=== PATIENT | male | born 1985 | race Caucasian/White ===

== ENCOUNTER 2020-04-16 12:36 | Inpatient (IN) | payer BC ==
--- NOTE | 2020-04-16 12:45 | BHS.RME ---
Substance Use & Tx History - Substance Use History Heroin Substance amount: 5 bundles Frequency of use: Daily Substance route: Inhalation (ex: sniffing or snorting) Date of Last Use: 04/15/20 (started age 11, last used 10:30PM 40 bags) Nicotine Substance amount: 1 pack Frequency of use: Daily Substance route: Smoking Date of Last Use: 04/16/20 (started age 26) Marijuana/Hashish Substance amount: 1 joint Frequency of use: Once a month Substance route: Smoking Date of Last Use: 04/15/20 (started age 26) Physical/Psych/Mental Status - Behavior General Behavior: Increased activity (restlessness, agitation) Eye Contact: Normal - Cooperativeness Cooperativeness: Cooperative - Thinking Thought Processes: Tight, Logical, Goal Directed - Physical Health Problems Is patient presently having any pain?: No Does patient presently have any injuries (include location): No Does patient currently have a fever: No Is patient : No COWS - Scale Resting Pulse: 1= [place] 81-100 Sweatin= Chills/Flushing Restless Observation: 1= Difficult to Sit Still Pupil Size: 2= Moderately Dilated Bone or Joint Aches: 1= Mild Discomfort Runny Nose/ Eye Tearin= None GI Upset > 30mins: 0= None Tremor Observation: 0= None Yawning Observation: 0= None Anxiety or Irritability: 0= None Goose Flesh Skin: 3=Piloerection COWS Score: 9
[2020-04-16 13:30] VITALS: BMI 22.7
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
[2020-04-16] MEDS ORDERED: METHADONE HCL 10 MG TABLET (FOR DETOX USE ONLY) PO ONE (14:31)
[2020-04-16] MEDS ORDERED: MAG HYDROX/AL HYDROX/SIMETH 30 ML UNIT-DOSE CUP PO PRN (14:31)
[2020-04-16] MEDS ORDERED: BISMUTH SUBSALICYLATE 262 MG/15 ML BTL PO PRN (14:31)
[2020-04-16] MEDS ORDERED: MAGNESIUM CITRATE 300 ML BOTTLE PO PRN (14:31)
[2020-04-16] MEDS ORDERED: ACETAMINOPHEN 325 MG TABLET (FP) PO PRN ×2 (14:31)
[2020-04-16] MEDS ORDERED: ONDANSETRON *ODT* 4 MG TABLET SL PRN (14:31)
[2020-04-16] MEDS ORDERED: METHOCARBAMOL 500 MG TABLET PO PRN (14:31)
[2020-04-16] MEDS ORDERED: IBUPROFEN 400 MG TABLET (FP) PO PRN (14:31)
[2020-04-16] MEDS ORDERED: cloNIDine HCL 0.1 MG TABLET PO PRN (14:31)
[2020-04-16] MEDS ORDERED: MAGNESIUM HYDROX 2400MG/30ML ORAL SUSPENSION 30 ML CUP PO PRN (14:31)
[2020-04-16] MEDS ORDERED: MENTHOL/PHENOL 1 EACH UD MM PRN (14:31)
[2020-04-16] MEDS: NICOTINE 14 MG/24 HOURS TOPICAL PATCH TD SCH (15:43)
[2020-04-16 18:22] LABS: HEMOGLOBIN 11.7 GM/dL (11.7-16.9); MCH 28.5 pg (25.7-33.7); MCHC 33.3 g/dl (32.0-35.9); MEAN CELL VOLUME 85.7 fl (80-96); PLATELET COUNT 169 K/MM3 (134-434); RBC 4.08 M/mm3 (4.00-5.60); RDW 13.3 % (11.9-15.9); WHITE BLOOD COUNT 6.5 K/mm3 (4.0-10.0)
[2020-04-16 18:32] LABS: ALBUMIN 3.6 g/dl (3.4-5.0); BILIRUBIN,TOTAL 0.6 mg/dL (0.2-1); BLOOD UREA NITROGEN 16.9 mg/dL (7-18); CALCIUM 8.6 mg/dL (8.5-10.1); CREATININE 1.2 mg/dL (0.55-1.3); POTASSIUM 3.5 mmol/L (3.5-5.1); TOT PROT 6.7 g/dl (6.4-8.2)
[2020-04-16] MEDS: hydrOXYzine PAMOATE 25 MG CAPSULE (FP) PO SCH ×2 (18:50→23:16)
[2020-04-16] MEDS: MELATONIN 5 MG TABLETS PO SCH (23:16)
[2020-04-16] MEDS: THIAMINE HCL 100 MG TABLET (FP) PO SCH (23:16)
[2020-04-17] MEDS: hydrOXYzine PAMOATE 25 MG CAPSULE (FP) PO SCH ×5 (06:18→22:21)
[2020-04-17] MEDS ORDERED: METHADONE HCL 10 MG TABLET (FOR DETOX USE ONLY) ONE (08:48)
[2020-04-17] MEDS ORDERED: METHADONE HCL 5 MG TABLET (FOR DETOX USE ONLY) ONE (08:48)
[2020-04-17] MEDS ORDERED: METHADONE (DETOX) 20 MG, METHADONE (DETOX) 5 MG PO ONE (10:00)
--- NOTE | 2020-04-17 10:36 | PN ---
S COWS - Scale Resting Pulse: 1= [place] 81-100 Sweatin= No chills or Flushing Restless Observation: 0= Sits Still Pupil Size: 1= Pupils >than Normal Bone or Joint Aches: 2= Severe Diffuse Aches Runny Nose/ Eye Tearin= Runny Nose/Eyes GI Upset > 30mins: 2= Nausea/Diarrhea Tremor Observation of Outstretched Hands: 2= Slight Tremor Visible Yawning Observation: 1= 1-2x During Session Anxiety or Irritability: 2=Irritable/Anxious Goose Flesh Skin: 0=Smooth Skin COWS Score: 13 S Progress Note (SOAP) Subjective: alert,irritable,anxious,interrupted sleep,tremor,pain in the body and back,nausea Objective: 04/17/20 14:27 Vital Signs Temperature 97.8 F 04/17/20 12:54 Pulse Rate 83 04/17/20 12:54 Respiratory Rate 18 04/17/20 12:54 Blood Pressure 115/75 04/17/20 12:54 O2 Sat by Pulse Oximetry (%) 96 04/17/20 12:54 Laboratory Results - last 24 hr 04/16/20 04/16/20 04/16/20 13:40 13:40 13:40 WBC 6.5 RBC 4.08 Hgb 11.7 Hct 35.0 L MCV 85.7 MCH 28.5 MCHC 33.3 RDW 13.3 Plt Count 169 MPV 10.0 Sodium 138 Potassium 3.5 Chloride 104 Carbon Dioxide 29 Anion Gap 5 L BUN 16.9 Creatinine 1.2 Est GFR (CKD-EPI)AfAm 91.53 Est GFR (CKD-EPI)NonAf 78.97 Random Glucose 117 H Calcium 8.6 Total Bilirubin 0.6 AST 18 ALT 23 Alkaline Phosphatase 64 Total Protein 6.7 Albumin 3.6 Syphilis Serology HIV Ag/Ab Combo Qual Negative 04/16/20 13:40 WBC RBC Hgb Hct MCV MCH MCHC RDW Plt Count MPV Sodium Potassium Chloride Carbon Dioxide Anion Gap BUN Creatinine Est GFR (CKD-EPI)AfAm Est GFR (CKD-EPI)NonAf Random Glucose Calcium Total Bilirubin AST ALT Alkaline Phosphatase Total Protein Albumin Syphilis Serology Non-reactive HIV Ag/Ab Combo Qual 04/17/20 14:27 Laboratory Last Values WBC 6.5 K/mm3 (4.0-10.0) 04/16/20 13:40 RBC 4.08 M/mm3 (4.00-5.60) 04/16/20 13:40 Hgb 11.7 GM/dL (11.7-16.9) 04/16/20 13:40 Hct 35.0 % (35.4-49) L 04/16/20 13:40 MCV 85.7 fl (80-96) 04/16/20 13:40 MCH 28.5 pg (25.7-33.7) 04/16/20 13:40 MCHC 33.3 g/dl (32.0-35.9) 04/16/20 13:40 RDW 13.3 % (11.9-15.9) 04/16/20 13:40 Plt Count 169 K/MM3 (134-434) 04/16/20 13:40 MPV 10.0 fl (7.5-11.1) 04/16/20 13:40 Sodium 138 mmol/L (136-145) 04/16/20 13:40 Potassium 3.5 mmol/L (3.5-5.1) 04/16/20 13:40 Chloride 104 mmol/L (98-107) 04/16/20 13:40 Carbon Dioxide 29 mmol/L (21-32) 04/16/20 13:40 Anion Gap 5 MMOL/L (8-16) L 04/16/20 13:40 BUN 16.9 mg/dL (7-18) 04/16/20 13:40 Creatinine 1.2 mg/dL (0.55-1.3) 04/16/20 13:40 Est GFR (CKD-EPI)AfAm 91.53 04/16/20 13:40 Est GFR (CKD-EPI)NonAf 78.97 04/16/20 13:40 Random Glucose 117 mg/dL (74-106) H 04/16/20 13:40 Calcium 8.6 mg/dL (8.5-10.1) 04/16/20 13:40 Total Bilirubin 0.6 mg/dL (0.2-1) 04/16/20 13:40 AST 18 U/L (15-37) 04/16/20 13:40 ALT 23 U/L (13-61) 04/16/20 13:40 Alkaline Phosphatase 64 U/L (45-117) 04/16/20 13:40 Total Protein 6.7 g/dl (6.4-8.2) 04/16/20 13:40 Albumin 3.6 g/dl (3.4-5.0) 04/16/20 13:40 Syphilis Serology Non-reactive (NONREACTIVE) 04/16/20 13:40 HIV Ag/Ab Combo Qual Negative (NEGATIVE) 04/16/20 13:40 Assessment: 04/17/20 14:28 withdrawal symptom Plan: continue detox methadone regimen,valium 10 mgs po q 4hrs prn for severe withdrawal in 72 hrs
[2020-04-17] MEDS: PRENATAL VITAMINS W/ FOLIC ACID TABLET (FP) PO SCH (10:38)
[2020-04-17] MEDS: NICOTINE 14 MG/24 HOURS TOPICAL PATCH TD SCH (10:40)
[2020-04-17] MEDS: NICOTINE POLACRILEX 2 MG GUM BUC PRN (10:40)
[2020-04-17] MEDS ORDERED: PNEUMOC 13-VAL CONJ-DIP CRM/PF 0.5 ML DISP.SYRIN IM ONE (12:00)
[2020-04-17] MEDS ORDERED: PNEUMOCOCCAL 23 VACCINE 0.5 ML VIAL IM ONE (12:00)
--- NOTE | 2020-04-17 12:01 | PN ---
Teaching Attending Note Name of Resident: Prerna Lua ATTENDING PHYSICIAN STATEMENT I saw and evaluated the patient. I reviewed the resident's note and discussed the case with the resident. I agree with the resident's findings and plan as documented. SUBJECTIVE: OBJECTIVE: ASSESSMENT AND PLAN: 1. Opioid withdrawal Plan 1. Methadone detox protocol
[2020-04-17] MEDS: THIAMINE HCL 100 MG TABLET (FP) PO SCH (22:22)
[2020-04-17] MEDS: MELATONIN 5 MG TABLETS PO SCH (22:22)
[2020-04-18] MEDS: hydrOXYzine PAMOATE 25 MG CAPSULE (FP) PO SCH ×5 (05:41→22:19)
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
[2020-04-18] MEDS: diazePAM 5 MG TABLET PO PRN ×2 (08:40→13:05)
[2020-04-18] MEDS ORDERED: METHADONE HCL 10 MG TABLET (FOR DETOX USE ONLY) PO ONE (10:00)
[2020-04-18] MEDS: NICOTINE 14 MG/24 HOURS TOPICAL PATCH TD SCH (10:32)
[2020-04-18] MEDS: PRENATAL VITAMINS W/ FOLIC ACID TABLET (FP) PO SCH (10:32)
--- NOTE | 2020-04-18 10:32 | EKG ---
Test Reason : Blood Pressure : / mmHG Vent. Rate : 064 BPM Atrial Rate : 064 BPM P-R Int : 186 ms QRS Dur : 116 ms QT Int : 388 ms P-R-T Axes : 066 076 056 degrees QTc Int : 400 ms NORMAL SINUS RHYTHM INCOMPLETE RIGHT BUNDLE BRANCH BLOCK NO PREVIOUS ECGS AVAILABLE Confirmed by LATOSHA BERUMEN MD ([id number]) on 04/18/2020 10:31:36 AM Referred By: Confirmed By:LATOSHA BERUMEN MD
[2020-04-18] MEDS: NICOTINE POLACRILEX 2 MG GUM BUC PRN (10:33)
--- NOTE | 2020-04-18 14:31 | EKG ---
Test Reason : Blood Pressure : / mmHG Vent. Rate : 076 BPM Atrial Rate : 076 BPM P-R Int : 180 ms QRS Dur : 108 ms QT Int : 352 ms P-R-T Axes : 063 083 056 degrees QTc Int : 396 ms NORMAL SINUS RHYTHM INCOMPLETE RIGHT BUNDLE BRANCH BLOCK WHEN COMPARED WITH ECG OF 17-APR-2020 17:38, NO SIGNIFICANT CHANGE WAS FOUND Confirmed by LATOSHA BERUMEN MD ([id number]) on 04/18/2020 2:31:20 PM Referred By: MADYSON JACKSON Confirmed By:LATOSHA BERUMEN MD
[2020-04-18] MEDS: MELATONIN 5 MG TABLETS PO SCH (22:18)
[2020-04-18] MEDS: THIAMINE HCL 100 MG TABLET (FP) PO SCH (22:19)
[2020-04-19] MEDS: hydrOXYzine PAMOATE 25 MG CAPSULE (FP) PO SCH ×5 (07:12→23:21)
[2020-04-19] MEDS ORDERED: METHADONE (DETOX) 10 MG, METHADONE (DETOX) 5 MG PO ONE (10:00)
[2020-04-19] MEDS ORDERED: METHADONE HCL 10 MG TABLET (FOR DETOX USE ONLY) ONE (10:19)
[2020-04-19] MEDS ORDERED: METHADONE HCL 5 MG TABLET (FOR DETOX USE ONLY) ONE (10:19)
--- NOTE | 2020-04-19 10:33 | PN ---
BHS COWS - Scale Resting Pulse: 0= [place] 80 or Below Sweatin= No chills or Flushing Restless Observation: 1= Difficult to Sit Still Pupil Size: 0= Normal to Room Light Bone or Joint Aches: 2= Severe Diffuse Aches Runny Nose/ Eye Tearin= None GI Upset > 30mins: 0= None Tremor Observation of Outstretched Hands: 0= None Yawning Observation: 2= >3x During Session Anxiety or Irritability: 2=Irritable/Anxious Goose Flesh Skin: 0=Smooth Skin COWS Score: 7 S Progress Note (SOAP) Subjective: c/o sweats, anxiety, irritability, and muscle aches. Objective: 04/19/20 10:33 Vital Signs 04/19/20 04/19/20 06:05 08:39 Temperature 96.9 F L 97.1 F L Pulse Rate 67 74 Respiratory 18 18 Rate Blood Pressure 105/67 112/68 O2 Sat by Pulse 99 Oximetry (%) Laboratory Last Values WBC 6.5 K/mm3 (4.0-10.0) 04/16/20 13:40 RBC 4.08 M/mm3 (4.00-5.60) 04/16/20 13:40 Hgb 11.7 GM/dL (11.7-16.9) 04/16/20 13:40 Hct 35.0 % (35.4-49) L 04/16/20 13:40 MCV 85.7 fl (80-96) 04/16/20 13:40 MCH 28.5 pg (25.7-33.7) 04/16/20 13:40 MCHC 33.3 g/dl (32.0-35.9) 04/16/20 13:40 RDW 13.3 % (11.9-15.9) 04/16/20 13:40 Plt Count 169 K/MM3 (134-434) 04/16/20 13:40 MPV 10.0 fl (7.5-11.1) 04/16/20 13:40 Sodium 138 mmol/L (136-145) 04/16/20 13:40 Potassium 3.5 mmol/L (3.5-5.1) 04/16/20 13:40 Chloride 104 mmol/L (98-107) 04/16/20 13:40 Carbon Dioxide 29 mmol/L (21-32) 04/16/20 13:40 Anion Gap 5 MMOL/L (8-16) L 04/16/20 13:40 BUN 16.9 mg/dL (7-18) 04/16/20 13:40 Creatinine 1.2 mg/dL (0.55-1.3) 04/16/20 13:40 Est GFR (CKD-EPI)AfAm 91.53 04/16/20 13:40 Est GFR (CKD-EPI)NonAf 78.97 04/16/20 13:40 Random Glucose 117 mg/dL (74-106) H 04/16/20 13:40 Calcium 8.6 mg/dL (8.5-10.1) 04/16/20 13:40 Total Bilirubin 0.6 mg/dL (0.2-1) 04/16/20 13:40 AST 18 U/L (15-37) 04/16/20 13:40 ALT 23 U/L (13-61) 04/16/20 13:40 Alkaline Phosphatase 64 U/L (45-117) 04/16/20 13:40 Total Protein 6.7 g/dl (6.4-8.2) 04/16/20 13:40 Albumin 3.6 g/dl (3.4-5.0) 04/16/20 13:40 Syphilis Serology Non-reactive (NONREACTIVE) 04/16/20 13:40 COVID-19 (HARJINDER) Not detected (Not Detected) 04/16/20 13:40 HIV Ag/Ab Combo Qual Negative (NEGATIVE) 04/16/20 13:40 Labs noted. Assessment: 04/19/20 10:33 AOX3, in no acute respiratory distress. Full ROM, ambulating in the unit. Withdrawal symptoms. Plan: continue detox.
[2020-04-19] MEDS: PRENATAL VITAMINS W/ FOLIC ACID TABLET (FP) PO SCH (10:34)
[2020-04-19] MEDS: NICOTINE 14 MG/24 HOURS TOPICAL PATCH TD SCH (10:35)
[2020-04-19] MEDS: NICOTINE POLACRILEX 2 MG GUM BUC PRN (10:35)
[2020-04-19] MEDS: THIAMINE HCL 100 MG TABLET (FP) PO SCH (23:25)
[2020-04-19] MEDS: MELATONIN 5 MG TABLETS PO SCH (23:27)
[2020-04-20] MEDS: hydrOXYzine PAMOATE 25 MG CAPSULE (FP) PO SCH ×3 (06:17→14:44)
[2020-04-20 07:18] VITALS: BP 101/57; PULSE 72; TEMP 97.7
[2020-04-20] MEDS ORDERED: METHADONE HCL 10 MG TABLET (FOR DETOX USE ONLY) PO ONE (10:00)
[2020-04-20] MEDS: NICOTINE 14 MG/24 HOURS TOPICAL PATCH TD SCH (11:10)
[2020-04-20] MEDS: PRENATAL VITAMINS W/ FOLIC ACID TABLET (FP) PO SCH (11:11)
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
[2020-04-21] MEDS ORDERED: METHADONE HCL 5 MG TABLET (FOR DETOX USE ONLY) PO ONE (06:00)
== END 2020-04-20 11:03 | disposition left against medical advice (07) | DRG 773 ==
LOC: YASAS 12:36 → Y3N 13:48 → Y6N 04-19 22:09
PROVIDERS: ADMIT Allergy & Immunology; ATTEND Allergy & Immunology
PROC: HZ2ZZZZ Detoxification Services for Substance Abuse Treatment (ICD-10-PCS; principal; 2020-04-16)
DX: F11.23 Opioid dependence with withdrawal (principal); F12.10 Cannabis abuse, uncomplicated; F17.210 Nicotine dependence, cigarettes, uncomplicated; E78.5 Hyperlipidemia, unspecified; R63.4 Abnormal weight loss; Z68.22 Body mass index [BMI] 22.0-22.9, adult; Z59.0 Homelessness; Z86.19 Personal history of other infectious and parasitic diseases; Z87.828 Personal history of other (healed) physical injury and trauma
CPT/HCPCS: 36415; 80053; 85027; 86780; 87389; 90732; 93005; 93010; G0009; U0003